=== PATIENT | male | born 1970 | race African-American/Black ===

== ENCOUNTER 2021-12-20 20:12 | Emergency (ER) | payer OTHER, SELFPAY ==
[2021-12-20 19:43] VITALS: BP 142/90; PULSE 74; RESP 18; TEMP 37.1; O2SAT 98
[2021-12-20 20:51] LABS: Basophils Absolute Auto 0.1 K/mm3 (0.0-0.1); Basophils Percent Auto 0.5 % (0.2-1.2); Eosinophils Absolute Auto 0.2 K/mm3 (0-0.3); Eosinophils Percent Auto 1.7 % (0-4.4); Hematocrit 37.9 % (42.0-52.0); Hemoglobin 12.2 g/dL (14.0-18.0); Immature Granulocyte Absolute 0.04 K/mm3 (0.00-0.031); Immature Granulocyte Percent A 0.4 % (0-0.5); Lymphocytes Absolute Auto 1.98 K/mm3 (0.9-3.2); Lymphocytes Percent Auto 17.9 % (18.3-44.2); Mean Corpuscular HGB Conc 32.2 g/dl (32-36); Mean Corpuscular Hemoglobin 22.6 pg (26-34); Mean Corpuscular Volume 70.2 fl (80-100); Mean Platelet Volume 10.4 fl (7.4-10.4); Monocytes Absolute Auto 0.8 K/mm3 (0.1-0.6); Monocytes Percent Auto 6.8 % (2.6-8.5); Neutrophils Absolute Auto 8.1 K/mm3 (1.3-6.7); Neutrophils Percent Auto 72.7 % (45.5-73.1); Platelet Count Result 348 k/mm3 (150-375); Red Cell Distribution Width 16.3 % (11.5-14.5); White Blood Count 11.1 K/mm3 (4.5-10.0)
[2021-12-20 21:18] LABS: Ethanol < 10 mg/dL (<10)
--- NOTE | 2021-12-20 21:22 | PC.NURSE ---
PD at bedside.
--- NOTE | 2021-12-20 21:52 | ED.GENADULT ---
HPI - General Adult General Chief complaint: Abdominal Pain Stated complaint: abdominal pain, alcohol Time Seen by Provider: 12/20/21 20:27 Source: police Mode of arrival: wheelchair Limitations: intoxication History of Present Illness HPI narrative: 51-year-old was brought in by PD with complaints of abdominal pain. Patient was being arrested for a warrant started complaining of abdominal pain. As per the PD they found alcohol in his car and meth pipes since he got here to the emergency room he has been constantly sleeping I had to wake him up several times asked him is he hurting anywhere patient declined he was just nodding his head Onset (ago): hour(s) (1) Associated symptoms: denies other symptoms Related Data Home Medications Medication Instructions Recorded Confirmed Unable to Obtain Home Medications 12/20/21 Allergies Allergy/AdvReac Type Severity Reaction Status Date / Time No Known Allergies Allergy Verified 12/20/21 21:21 Review of Systems Review of Systems: All systems reviewed & are unremarkable except as noted in HPI and below Constitutional: Constitutional: Reports no additional constitutional complaints Eyes: Eyes: Reports no additional eye complaints Cardiovascular: Cardiovascular: Reports no additional cardiovascular complaints Respiratory: Respiratory: Reports no additional respiratory complaints Gastrointestinal: Gastrointestinal: Reports as per HPI [facility] Social History Social History Alcohol intake: current Substance use: current Substance use type: marijuana Exam Narrative: GENERAL: Well-appearing, well-nourished, drowsy. HEAD: Normocephalic, atraumatic. EYES: PERRLA and EOMI. NECK: Supple. CHEST: Clear to auscultation. No respiratory distress. HEART: Regular rate and rhythm. No murmur heard. Normal peripheral pulses. ABDOMEN: Soft, nontender, has a large ventral hernia which is reducible EXTREMITIES: Normal range of motion. No edema. SKIN: Warm, dry, no rash. NEURO: No focal deficits. Arousable. PSYCH: Normal mood and affect. Course Course Emergency Course: Patient is on drugs, I informed him about his lab work and the PVD who is at the bedside. We will discharge him to the care home Vital Signs Vital signs: Vital Signs Temperature 37.1 C 12/20/21 19:43 Pulse Rate 74 12/20/21 19:43 Respiratory Rate 18 12/20/21 19:43 Blood Pressure 142/90 H 02/09/22 19:43 Pulse Oximetry 98 12/20/21 19:43 Temperature 37.1 C 12/20/21 19:43 Pulse Rate 74 12/20/21 19:43 Respiratory Rate 18 12/20/21 19:43 Blood Pressure 142/90 H 12/20/21 19:43 Pulse Oximetry 98 12/20/21 19:43 Medical Decision Making Vital Signs Vital Signs: Vital Signs Temperature 37.1 C 12/20/21 19:43 Pulse Rate 74 12/20/21 19:43 Respiratory Rate 18 12/20/21 19:43 Blood Pressure 142/90 H 12/20/21 19:43 Pulse Oximetry 98 12/20/21 19:43 Temperature 37.1 C 12/20/21 19:43 Pulse Rate 74 12/20/21 19:43 Respiratory Rate 18 12/20/21 19:43 Blood Pressure 142/90 H 12/20/21 19:43 Pulse Oximetry 98 12/20/21 19:43 Lab Data Result diagrams: 12/20/21 20:42 12/20/21 20:42 Labs: Lab Results 12/20/21 12/20/21 12/20/21 Range/Units 20:42 20:42 20:42 WBC 11.1 H (4.5-10.0) K/mm3 RBC 5.40 (4.6-6.20) M/mm3 Hgb 12.2 L (14.0-18.0) g/dL Hct 37.9 L (42.0-52.0) % MCV 70.2 L (80-100) fl MCH 22.6 L (26-34) pg MCHC 32.2 (32-36) g/dl RDW 16.3 H (11.5-14.5) % Plt Count 348 (150-375) k/mm3 MPV 10.4 (7.4-10.4) fl Immature Gran % (Auto) 0.4 (0-0.5) % Neut % (Auto) 72.7 (45.5-73.1) % Lymph % (Auto) 17.9 L (18.3-44.2) % Love % (Auto) 6.8 (2.6-8.5) % Eos % (Auto) 1.7 (0-4.4) % Baso % (Auto) 0.5 (0.2-1.2) % Lymph # (Auto) 1.98 (0.9-3.2) K/mm3 Love # (Auto) 0.8 H (0.1-0.6) K/mm3 Eos # (Auto) 0
[2021-12-20 22:01] LABS: Alanine Aminotransferase 10 U/L (4-50); Alkaline Phosphatase 100 U/L (38-126); Anion Gap 3 mmol/L (8-16); Aspartate Amino Transferase 25 U/L (17-59); Bilirubin,Total 0.4 mg/dL (0.2-1.3); Blood Urea Nitrogen 12 mg/dL (9-20); Calcium 8.8 mg/dL (8.4-10.2); Carbon Dioxide 24 mmol/L (22-30); Chloride 109 mmol/L (98-107); Estimated CRCL calculation 66 ml/min; Estimated Glomerular Filt Rate > 60; Glucose 108 mg/dL (65-110); Lipase 92 U/L (23-300); Potassium 4.6 mmol/L (3.4-5.0); Sodium 136 mmol/L (137-145)
[2021-12-20 22:09] VITALS: BP 133/78; PULSE 84; RESP 16; O2SAT 98
== END 2021-12-20 22:12 ==
PROVIDERS: Emergency Provider Family Medicine
DX: R10.84 Generalized abdominal pain (principal)
CPT/HCPCS: 36415; 80053; 80307; 83690; 85025; 99283

== ENCOUNTER 2022-09-04 16:48 | Emergency (ER) | payer OTHER, SELFPAY ==
--- NOTE | ~2022-09-04 | CT_ITS ---
EXAMINATION: CT abdomen pelvis w con DATE: 09/04/2022 19:12 INDICATION: Abdominal pain, generalized. Hernia for 2 years. History of small bowel obstruction. TECHNIQUE: Computed tomography (CT) of the abdomen and pelvis was performed with 100 CC Omnipaque 350 intravenous contrast. Automated exposure control and iterative reconstruction technique were employe d. Exam dose: 476.56 mGy-cm total exam DLP. COMPARISON: None. FINDINGS: There are multiple areas of discoid atelectasis and/or scarring of the mid and particularly lower lung zones Normal heart size. No pericardial or pleural effusion. The liver, spleen, pancreas, adrenal glands and kidneys appear unremarkable. Normal caliber of the ab dominal aorta. No intraperitoneal or retroperitoneal or pelvic mass lesion or adenopathy or ascites i s noted. There is a large midline ventral abdominal wall hernia containing a bowel structure with air-fluid le vels, with proximal small bowel air-fluid levels, suggesting partial small bowel obstruction.. Small bowel series is recommended. There are bowel sutures of left and right abdomen. No bowel wall thickening or pneumatosis portal lita ous gas is noted.. No suspicious osteolytic or osteoblastic lesions. IMPRESSION: Midline ventral wide abdominal wall hernia containing bowel with air-fluid levels, sugge sting partial small bowel obstruction; consider small bowel series and possibly radiographic enema fo r further evaluation Reviewed, dictated and finalized at [facility]. Reviewed, dictated and finalized at [facility]. IMPRESSION: Midline ventral wide abdominal wall hernia containing bowel with a ir-fluid levels, suggesting partial small bowel obstruction; consider small bow el series and possibly radiographic enema for further evaluation
[2022-09-04 16:56] VITALS: BP 151/90; PULSE 76; RESP 18; TEMP 36.3; O2SAT 100
--- NOTE | 2022-09-04 18:15 | PC.NURSE ---
pt up to desk complaining that he isnt receiving medical attention because he is black. pt made aware that people are triaged and taken back due to severity of complaints. pt argumentative and confrontational with staff.
[2022-09-04 18:18] VITALS: BP 151/107; PULSE 89; RESP 16; TEMP 36.7; O2SAT 99
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
[2022-09-04] MEDS: ONDANSETRON INJ 4 MG/2 ML VIAL IV PUSH (18:34)
[2022-09-04] MEDS: SODIUM CHLORIDE 0.9% IV 1,000 ML 999 ML IV CONT (18:35)
[2022-09-04] MEDS: MORPHINE SULFATE (*CRX) 2 MG/ML INJ IV PUSH (18:35)
[2022-09-04 18:54] LABS: Lactic Acid Reflex 0.8 mmol/L (0.7-2.0)
[2022-09-04 18:56] LABS: Alanine Aminotransferase 12 U/L (6-50); Albumin Level 4.2 g/dL (3.5-5.1); Alkaline Phosphatase 99 U/L (38-126); Anion Gap 13 mmol/L (8-16); Aspartate Amino Transferase 19 U/L (17-59); Bilirubin,Total 0.5 mg/dL (0.2-1.3); Blood Urea Nitrogen 9 mg/dL (9-20); Carbon Dioxide 23 mmol/L (22-30); Chloride 105 mmol/L (98-107); Estimated CRCL calculation 83 ml/min; Estimated Glomerular Filt Rate > 60; Glucose 105 mg/dL (65-110); Lipase 69 U/L (23-300); Sodium 141 mmol/L (137-145)
[2022-09-04 18:57] LABS: Basophils Absolute Auto 0.1 K/mm3 (0.0-0.1); Basophils Percent Auto 0.5 % (0.2-1.2); Eosinophils Absolute Auto 0.1 K/mm3 (0-0.3); Hematocrit 40.8 % (42.0-52.0); Hemoglobin 13.2 g/dL (14.0-18.0); Immature Granulocyte Absolute 0.02 K/mm3 (0.00-0.031); Immature Granulocyte Percent A 0.2 % (0-0.5); Lymphocytes Absolute Auto 2.22 K/mm3 (0.9-3.2); Lymphocytes Percent Auto 21.6 % (18.3-44.2); Mean Corpuscular HGB Conc 32.4 g/dl (32-36); Mean Corpuscular Hemoglobin 22.6 pg (26-34); Mean Corpuscular Volume 69.9 fl (80-100); Mean Platelet Volume 10.4 fl (7.4-10.4); Monocytes Absolute Auto 0.6 K/mm3 (0.1-0.6); Monocytes Percent Auto 6.2 % (2.6-8.5); Neutrophils Absolute Auto 7.3 K/mm3 (1.3-6.7); Neutrophils Percent Auto 70.5 % (45.5-73.1); Platelet Count Result 425 k/mm3 (150-375); Red Blood Count 5.84 M/mm3 (4.6-6.20); Red Cell Distribution Width 16.3 % (11.5-14.5); White Blood Count 10.3 K/mm3 (4.5-10.0)
[2022-09-04 18:58] LABS: Add Urine Microscopic? NO; Appearance Urine Clear (Clear); Bilirubin Urine Negative (Negative); Blood Urine Negative (Negative); Color Urine Yellow (Yellow); Glucose Urine UA Negative (Negative); Ketones Urine Negative (Negative); Leukocyte Esterase Ur Negative LEU/UL (Negative); Nitrate Urine Negative (Negative); Protein Urine Negative (Negative); Specific Grav Ur 1.013 (1.001-1.035); Urobilinogen Urine Negative mg/dL (<2.0)
[2022-09-04 20:48] VITALS: BP 114/59; PULSE 81; RESP 15; O2SAT 100
[2022-09-04] MEDS: HYDROcodone/acetaminophen (*CRX) 5-325 MG TABLET 1 TAB PO (20:49)
== END 2022-09-04 20:57 | disposition home or self-care (01) ==
PROVIDERS: Nurse Practitioner Family; Emergency Provider Emergency Medicine; PCP Family Medicine
DX: K56.600 Partial intestinal obstruction, unspecified as to cause (principal); K43.9 Ventral hernia without obstruction or gangrene; Z87.828 Personal history of other (healed) physical injury and trauma
CPT/HCPCS: 36415; 74177; 80053; 81003; 83605; 83690; 85025; 96361; 96374; 96375; 99284; A9270; J2270; J2405; J7030; Q9967